=== PATIENT | male | born 1970 | race Caucasian/White ===

== ENCOUNTER 2024-12-27 09:55 | Inpatient (IN) | payer OTHER ==
[2024-12-27 10:20] VITALS: BMI 24.8
[2024-12-27] MEDS ORDERED: IBUPROFEN 600 MG TABLET (FP) PO PRN (11:22)
[2024-12-27] MEDS ORDERED: BISMUTH SUBSALICYLATE 262 MG/15 ML BTL PO PRN (11:22)
[2024-12-27] MEDS ORDERED: NALOXONE (NARCAN) HCL 4 MG/0.1 ML SPRAY NS PRN (11:22)
[2024-12-27] MEDS ORDERED: POLYETHYLENE GLYCOL (HEALTHYLAX) 3350 17 GM PACKET PO PRN (11:22)
[2024-12-27] MEDS ORDERED: guaiFENesin 600 MG TABLET.ER (FP) PO PRN (11:22)
[2024-12-27] MEDS ORDERED: ONDANSETRON *ODT* 4 MG TABLET SL PRN (11:22)
[2024-12-27] MEDS ORDERED: METHOCARBAMOL 500 MG TABLET PO PRN (11:22)
[2024-12-27] MEDS ORDERED: MAG HYDROX/AL HYDROX/SIMETH 30 ML UNIT-DOSE CUP PO PRN (11:22)
[2024-12-27] MEDS ORDERED: NICOTINE POLACRILEX 2 MG GUM BUC PRN (11:22)
[2024-12-27] MEDS ORDERED: chlordiazePOXIDE HCL 25 MG CAPSULE PO PRN (11:22)
[2024-12-27] MEDS ORDERED: DICYCLOMINE HCL 10 MG CAPSULE PO PRN (11:22)
[2024-12-27] MEDS ORDERED: BENZONATATE 200 MG CAPSULE PO PRN (11:22)
[2024-12-27] MEDS ORDERED: MAGNESIUM HYDROX 2400MG/30ML ORAL SUSPENSION 30 ML CUP PO PRN (11:22)
[2024-12-27] MEDS ORDERED: BENZOCAINE/MENTHOL (CHLORASEPTIC ) LOZENGE MM PRN (11:22)
[2024-12-27] MEDS ORDERED: IBUPROFEN 400 MG TABLET (FP) PO PRN (11:22)
[2024-12-27] MEDS ORDERED: hydrOXYzine PAMOATE 25 MG CAPSULE (FP) PO PRN (11:22)
[2024-12-27] MEDS ORDERED: ACETAMINOPHEN 325 MG TABLET (FP) PO PRN (11:22)
[2024-12-27] MEDS ORDERED: LOPERAMIDE HCL 2 MG CAPSULE PO PRN (11:22)
[2024-12-27] MEDS: NALTREXONE HCL 50 MG TABLET PO ONE (14:57)
[2024-12-27] MEDS: chlordiazePOXIDE HCL 25 MG CAPSULE PO SCH (17:29)
[2024-12-27] MEDS: MELATONIN 5 MG TABLETS PO SCH (22:09)
[2024-12-27] MEDS: THIAMINE 100 MG TABLET PO SCH (22:09)
[2024-12-28] MEDS: BICTEGRAV/EMTRICIT/TENOFOV (BIKTARVY) 50-200-25 MG TABLET PO SCH (08:34)
[2024-12-28] MEDS ORDERED: BICTEGRAV/EMTRICIT/TENOFOV (BIKTARVY) 50-200-25 MG TABLET PO SCH (10:00)
[2024-12-28] MEDS: NALTREXONE HCL 50 MG TABLET PO SCH (10:06)
[2024-12-28] MEDS: PRENATAL VITAMINS W/ FOLIC ACID TABLET (FP) PO SCH (10:06)
[2024-12-28 15:25] LABS: POTASSIUM 3.9 mmol/L (3.5-5.1)
[2024-12-28 15:26] LABS: HEMATOCRIT 34.4 % (35.4-49); HEMOGLOBIN 11.5 GM/dL (11.7-16.9); MCH 31.3 pg (25.7-33.7); MCHC 33.5 g/dl (32.0-35.9); MEAN CELL VOLUME 93.7 fl (80-96); MEAN PLT VOLUME 8.8 fl (7.5-11.1); PLATELET COUNT 240 10^3/uL (134-434); RBC 3.67 M/mm3 (4.00-5.60); RDW 13.4 % (11.9-15.9)
[2024-12-28 15:27] LABS: ALBUMIN 2.9 g/dl (3.4-5.0); CALCIUM 8.5 mg/dL (8.5-10.1)
[2024-12-28 15:31] LABS: CREATININE 0.9 mg/dL (0.55-1.3)
[2024-12-28 15:32] LABS: BILIRUBIN,TOTAL 0.2 mg/dL (0.2-1)
[2024-12-28] MEDS: chlordiazePOXIDE HCL 25 MG CAPSULE PO SCH (17:16)
[2024-12-29] MEDS: chlordiazePOXIDE HCL 25 MG CAPSULE PO SCH (05:51)
[2024-12-29 21:06] VITALS: RESP 16
[2024-12-30] MEDS ORDERED: chlordiazePOXIDE HCL 10 MG CAPSULE PO PRN
[2024-12-30] MEDS: chlordiazePOXIDE HCL 10 MG CAPSULE PO SCH (05:00)
[2024-12-30 07:08] VITALS: TEMP 98.2
[2024-12-30 09:00] VITALS: BP 128/83; PULSE 62
[2024-12-31] MEDS ORDERED: chlordiazePOXIDE HCL 10 MG CAPSULE PO SCH (05:00)
[2025-01-01] MEDS ORDERED: chlordiazePOXIDE HCL 10 MG CAPSULE PO ONE (05:00)
== END 2024-12-30 12:25 | disposition home or self-care (01) | DRG 774 ==
LOC: YASAS 09:55 → Y6N 12:06
PROVIDERS: ADMIT Allergy & Immunology; ATTEND Allergy & Immunology
PROC: HZ2ZZZZ Detoxification Services for Substance Abuse Treatment (ICD-10-PCS; principal; 2024-12-27)
DX: F10.230 Alcohol dependence with withdrawal, uncomplicated (principal); F14.20 Cocaine dependence, uncomplicated; F16.20 Hallucinogen dependence, uncomplicated; F17.210 Nicotine dependence, cigarettes, uncomplicated; F19.24 Other psychoactive substance dependence with psychoactive substance-induced mood disorder; F41.9 Anxiety disorder, unspecified; Z21 Asymptomatic human immunodeficiency virus [HIV] infection status; G47.00 Insomnia, unspecified; Z59.00 Homelessness unspecified
CPT/HCPCS: 36415; 71046-TC-FY; 80053; 80305; 80307; 85027; 86359; 86360; 86780; 93005; 93010